=== PATIENT | female | born 1965 | race Caucasian/White ===

== ENCOUNTER 2023-04-06 09:28 | Day surgery (SDC) | payer OTHER ==
[~2023-04-06 09:28] MED LIST: Lactated Ringers 1,000 ML IV SCH; Midazolam 1 MG/ML 2 ML SDV ONE; Propofol 200 MG/20 ML SDV ONE; fentaNYL 100 MCG/2 ML SDV ONE
[2023-04-06] MEDS ORDERED: Propofol 200 MG/20 ML SDV ONE (10:54)
== END 2023-04-06 13:07 | disposition home or self-care (01) ==
LOC: JP.SDS 09:28
PROVIDERS: ATTEND Student in an Organized Health Care Education/Training Program
DX: D12.0 Benign neoplasm of cecum (principal); K29.50 Unspecified chronic gastritis without bleeding; K51.40 Inflammatory polyps of colon without complications; K57.30 Diverticulosis of large intestine without perforation or abscess without bleeding; E11.9 Type 2 diabetes mellitus without complications
CPT/HCPCS: 43239; 45380; 88305; J2250; J2704; J3010; J7120